=== PATIENT | male | born 1980 | race Caucasian/White ===

== ENCOUNTER → 2017-08-19 | Outpatient (REF) | payer MEDICAID ==
[2017-08-19 12:43] LABS: HEMATOCRIT 47.5 % (42.0-52.0); HEMOGLOBIN 15.8 g/dl (13.5-17.5); MEAN CORPUSCULAR HEMOGLOBIN 29.8 pg (27.0-33.0); MEAN CORPUSCULAR HGB CONC 33.3 g/dl (32.0-36.5); MEAN CORPUSCULAR VOLUME 89.5 fl (80.0-96.0); PLATELET COUNT, AUTOMATED 296 10^3/uL (150-450); RED BLOOD COUNT 5.31 10^6/uL (4.30-6.10); WHITE BLOOD COUNT 5.2 10^3/uL (4.0-10.0)
[2017-08-19 13:18] LABS: ALBUMIN 4.6 GM/DL (3.2-5.2); ALBUMIN/GLOBULIN RATIO 1.31 (1.00-1.93); ALKALINE PHOSPHATASE 67 U/L (45-117); ALT/SGPT 18 U/L (12-78); ANION GAP 4 MEQ/L (8-16); AST/SGOT 11 U/L (7-37); BILIRUBIN,TOTAL 0.5 MG/DL (0.2-1.0); BLOOD UREA NITROGEN 15 MG/DL (7-18); CALCIUM LEVEL 8.9 MG/DL (8.5-10.1); CARBON DIOXIDE LEVEL 29 MEQ/L (21-32); CHLORIDE LEVEL 107 MEQ/L (98-107); FREE T4 0.98 NG/DL (0.76-1.46); GLOMERULAR FILTRATION RATE > 60.0 (>60); GLUCOSE, FASTING 98 MG/DL (70-100); MAGNESIUM LEVEL 2.4 MG/DL (1.8-2.4); POTASSIUM SERUM 4.5 MEQ/L (3.5-5.1); SODIUM LEVEL 140 MEQ/L (136-145); TOTAL PROTEIN 8.1 GM/DL (6.4-8.2)
== END ==
LOC: M SFHCADAM 11:00
DX: R42 Dizziness and giddiness (principal); R00.2 Palpitations

== ENCOUNTER → 2017-09-25 | Outpatient (CLI) | payer OTHER | LOC: M CARPUL 08:24 | DX: R00.2 Palpitations (principal); I51.7 Cardiomegaly | CPT/HCPCS: 93306 ==

== ENCOUNTER 2018-06-24 16:30 | Emergency (ER) | payer OTHER ==
[~2018-06-24] VITALS: Ht 175.3 cm; Wt 76.4 kg
[2018-06-24] MEDS ORDERED: ACETAMINOPHEN TAB 650MG DOSE (2X325MG) PO ONE (17:15)
--- NOTE | 2018-06-24 17:48 | REP ---
Head CT without contrast: History: Trauma Comparison study: No comparison study CT findings: Bone window settings demonstrate an intact bony calvarium. There is no evidence of skull fracture or incidental bony calvarial lesion. The visualized paranasal sinuses appear clear. No intraorbital abnormality is seen. On soft tissue window setting images; the lateral, third, and fourth ventricles are normal in size and position. Helms-white differentiation pattern is normal above and below the tentorium. There are is no evidence of intracranial hemorrhage. No mass, edema, infarction, or midline shift is seen. No extra-axial fluid collection is appreciated. Impression: Negative noncontrast head CT. Electronically Signed by Bg Hawkins MD 06/24/2018 05:38 P
--- NOTE | 2018-06-24 17:50 | REP ---
CT study of the cervical spine without contrast: History: Trauma. Technique: Helical scanning is acquired and overlapping 2 mm high resolution axial images were generated and reviewed at bone and soft tissue window settings. Coronal and sagittal multiplanar re-formations images are generated. CT findings: There is no evidence of cervical spine element fracture. No skull base fracture is seen. Cervical vertebral body heights are preserved. Alignment is normal. There is straightening of the normal lumbar lordosis. Mild degenerative disc narrowing is seen at C 04/05 and C5-6. Some reactive spurring is seen at C5-6 posteriorly. Facet joints are normally aligned bilaterally at each cervical level on multiplanar re-formations images. There is no evidence of intraspinal or paraspinal hematoma. No extra vertebral abnormality is seen. Impression: Mild degenerative spondylosis changes at C4-5 and C5-6. Otherwise negative CT study of the cervical spine without contrast. No fracture seen. Electronically Signed by Bg Hawkins MD 06/24/2018 05:40 P
[2018-06-24 18:06] VITALS: BP 131/85
--- NOTE | 2018-06-24 19:25 | REP ---
Maxillofacial CT study: History: Trauma. Findings: There are mild mucosal changes affecting the ethmoid air cells bilaterally. Orbital margins are intact. Zygomatic arches are intact. No paranasal sinus fracture is seen. No maxillary or mandibular fracture is appreciated. No intraorbital hematoma is seen. No other facial hematoma is appreciated. The nasal bone and inferior maxillary spine are intact. Impression: No facial fracture seen. Electronically Signed by Bg Hawkins MD 06/24/2018 07:32 P
--- NOTE | 2018-06-24 19:26 | REP ---
Right rib series: Five views including PA chest. History: Trauma. Findings: PA chest radiograph shows a granulomatous calcification projecting at the left lower lung field. There is no evidence of pneumothorax or hydrothorax. Lung paredes are otherwise clear. Pleural angles are sharp. Heart size is normal. Mediastinum is not widened. There is evidence of an old healed fracture left clavicle. Multiple views of the right ribcage show intact right ribs without evidence of rib fracture or bony destructive lesion. Impression: Negative right rib series. Granulomatous calcification on the left. Findings suggestive of an old healed left clavicle fracture. Electronically Signed by Bg Hawkins MD 06/24/2018 07:32 P
--- NOTE | 2018-06-24 19:27 | REP ---
Right hand series: Four views. History: Trauma. Findings: Four views of the right hand are compared with the prior study from June 09, 2012. Overall mineralization pattern is normal. Bones, joints and soft tissues are unremarkable. The prior study showed a nondisplaced fracture of the distal end of the third metacarpal which has healed. No deformity. Impression: Negative radiographs of the right hand. No fracture seen. Electronically Signed by Bg Hawkins MD 06/24/2018 07:33 P
== END 2018-06-24 18:08 | disposition home or self-care (01) ==
LOC: M ED 16:30
DX: F07.81 Postconcussional syndrome (principal); S20.219A Contusion of unspecified front wall of thorax, initial encounter; S60.229A Contusion of unspecified hand, initial encounter; F17.210 Nicotine dependence, cigarettes, uncomplicated; Y04.8XXA Assault by other bodily force, initial encounter

== ENCOUNTER → 2018-08-12 | Outpatient (CLI) | payer MEDICAID | LOC: M OUTALCOH 08:11 | PROVIDERS: ATTEND Psychiatry & Neurology Psychiatry | DX: Z03.89 Encounter for observation for other suspected diseases and conditions ruled out (principal) ==

== ENCOUNTER 2018-08-24 10:25 | Outpatient (RCR) | payer MEDICAID | END 2018-09-15 | LOC: M OUTALCOH 10:25 | PROVIDERS: ATTEND Psychiatry & Neurology Psychiatry | DX: Z03.89 Encounter for observation for other suspected diseases and conditions ruled out (principal) ==

== ENCOUNTER 2021-06-02 21:52 | Emergency (ER) | payer MEDICAID, OTHER ==
[~2021-06-02] VITALS: Ht 175.3 cm; Wt 72.7 kg
[2021-06-02] MEDS ORDERED: IBUP200T46 PO (22:15)
[2021-06-02] MEDS ORDERED: VITA500C24 PO (22:15)
[2021-06-02] MEDS ORDERED: MULT-90 PO (22:15)
[2021-06-02] MEDS ORDERED: ZINC220T3 PO (22:15)
[2021-06-02 23:04] LABS: VENOUS BASE EXCESS -2.2 (-2.0-2.0); VENOUS HCO3 23.7 MEQ/L (23.0-27.0); VENOUS O2 SATURATION 74.9 % (60.0-80.0); VENOUS PARTIAL PRESSURE CO2 44.4 mmHg (38.0-50.0); VENOUS PARTIAL PRESSURE O2 37.6 mmHg (30.0-50.0); VENOUS PH 7.345 UNITS (7.330-7.430); VENOUS STANDARD HCO3 22.1 MEQ/L; VENOUS TOTAL CO2 25.1 MEQ/L (24.0-28.0)
[2021-06-02 23:07] LABS: BASO % 0.2 % (0.0-1.0); EOS # 0.1 10^3/uL (0.0-0.5); EOS % 0.8 % (0.0-3.0); HEMOGLOBIN 15.7 g/dl (13.5-17.5); LYMPH # 1.6 10^3/uL (1.5-5.0); LYMPH % 18.4 % (24.0-44.0); MEAN CORPUSCULAR HEMOGLOBIN 29.7 pg (27.0-33.0); MEAN CORPUSCULAR HGB CONC 33.4 g/dl (32.0-36.5); MONO # 0.6 10^3/uL (0.0-0.8); NEUTROPHILS # 6.2 10^3/uL (1.5-8.5); NEUTROPHILS % 73.4 % (36.0-66.0); PLATELET COUNT, AUTOMATED 334 10^3/uL (150-450); RED BLOOD COUNT 5.28 10^6/uL (4.30-6.10); WHITE BLOOD COUNT 8.4 10^3/uL (4.0-10.0)
[2021-06-02 23:27] LABS: ALBUMIN 4.2 GM/DL (3.2-5.2); ALT/SGPT 55 U/L (12-78); BILIRUBIN,TOTAL 0.4 MG/DL (0.2-1.0); BLOOD UREA NITROGEN 12 MG/DL (7-18); CALCIUM LEVEL 8.8 MG/DL (8.5-10.1); CARBON DIOXIDE LEVEL 28 MEQ/L (21-32); CHLORIDE LEVEL 107 MEQ/L (98-107); CREATININE FOR GFR 1.18 MG/DL (0.70-1.30); GLOMERULAR FILTRATION RATE > 60.0 (>60); GLUCOSE, FASTING 104 MG/DL (70-100); POTASSIUM SERUM 4.3 MEQ/L (3.5-5.1); SODIUM LEVEL 142 MEQ/L (136-145); TOTAL PROTEIN 7.6 GM/DL (6.4-8.2)
[2021-06-03 03:45] VITALS: BP 112/63
== END 2021-06-03 04:09 | disposition home or self-care (01) ==
LOC: M ED 21:52
DX: T50.901A Poisoning by unspecified drugs, medicaments and biological substances, accidental (unintentional), initial encounter (principal); Z79.899 Other long term (current) drug therapy; Z88.0 Allergy status to penicillin

== ENCOUNTER 2021-11-17 16:17 | Emergency (ER) | payer OTHER ==
[~2021-11-17] VITALS: Ht 175.3 cm; Wt 77.2 kg
[~2021-11-17 16:17] MED LIST: IBUP200T46 PO; MULT-90 PO; VITA500C24 PO; ZINC220T3 PO
[2021-11-17 16:18] VITALS: BP 157/84
[2021-11-17] MEDS ORDERED: LIDOCAINE 5% (LIDODERM) PATCH TD ONE (20:05)
[2021-11-18] MEDS ORDERED: **NOTE PATIENT COMMENT** MISC XX SCH ×2 (08:00)
== END 2021-11-17 20:40 | disposition home or self-care (01) ==
LOC: M ED 16:17
DX: S70.02XA Contusion of left hip, initial encounter (principal); V03.10XA Pedestrian on foot injured in collision with car, pick-up truck or van in traffic accident, initial encounter; Y92.524 Gas station as the place of occurrence of the external cause; M25.562 Pain in left knee; M54.50 Low back pain, unspecified; Z88.0 Allergy status to penicillin; F17.200 Nicotine dependence, unspecified, uncomplicated

== ENCOUNTER → 2022-08-21 | Outpatient (CLI) | payer OTHER | LOC: M RAD 15:28 | PROVIDERS: ATTEND Physician Assistant | DX: M51.17 Intervertebral disc disorders with radiculopathy, lumbosacral region (principal) ==

== ENCOUNTER → 2023-03-19 | Outpatient (CLI) | payer OTHER ==
[~2023-03-19] MED LIST changes: +ISOVUE-300 61% 100ML VIAL As Ordered ONE; +LIDOCAINE 1% MDV 20ML VIAL As Ordered ONE; +methylPREDNISolone SUSP 40MG/ML 1ML VIAL (DEPO MEDROL) As Ordered ONE
== END ==
LOC: M RAD 10:23
PROVIDERS: ATTEND Physician Assistant
DX: M16.12 Unilateral primary osteoarthritis, left hip (principal)
CPT/HCPCS: 20610; 77002; J1030; Q9967

== ENCOUNTER → 2023-11-10 | Outpatient (CLI) | payer OTHER ==
[~2023-11-10] MED LIST changes: -ISOVUE-300 61% 100ML VIAL As Ordered ONE; -LIDOCAINE 1% MDV 20ML VIAL As Ordered ONE; -methylPREDNISolone SUSP 40MG/ML 1ML VIAL (DEPO MEDROL) As Ordered ONE
== END ==
LOC: M PLAIMG 13:27
PROVIDERS: ATTEND Physician Assistant
DX: M47.896 Other spondylosis, lumbar region (principal)